=== PATIENT | female | born 1945 | race Caucasian/White ===

== ENCOUNTER 2020-02-03 12:40 | Inpatient (IN) | payer MEDICARE, OTHER ==
[~2020-02-03] VITALS: Ht 167.6 cm; Wt 97.5 kg
[2020-02-03] VITALS (11 sets, daily range): BP systolic 97–145; BP diastolic 69–112
--- OUTSIDE RECORDS SUMMARY | 2020-02-03 12:43 | XMS REPORT ---
Author Author [facility] Organization [facility] Address Unknown Phone Unavailable Care Team Providers Care Automobile Mechanic Assistant Name Role Phone Unavailable Unavailable Payers Payer Name Policy Type Policy Number Effective Date Expiration D ate Problems This patient has no known problems. Allergies, Adverse Reactions, Alerts Allergy Name Allergy Type Status Severity Reaction(s) Onset Date Inacti ve Date Treating Clinician Comments No Known Allergies DA Active U 2012-09-02 00:00:00 Medications This patient has no known medications. Results Test Description Test Time Test Comments Text Results Atomic Results Result Comments THROMBOPLASTIN TIME PARTIAL 2020-01-31 19:40:00 THROMBOPLASTIN TIME PARTIAL (test code = PTT) 54.1 seconds 23 .0-37.0 IS PATIENT ON ANTICOAGULANTS? YLIST ANTICOAGULANTS HEPARINSPECIMEN COMMENTS: HEPARIN DRIP PROTOCOLCOMMENTS TO COMMUNITY OUTREACH SPECIALIST: HEPARIN DRIP PROTOCOL THROMBOPLASTIN TIME [id number] 11:49:00* Test Item Value Reference Range Comments THROMBOPLASTIN TIME PARTIAL (test code = PTT) 55.9 seconds 23 .0-37.0 IS PATIENT ON ANTICOAGULANTS? YLIST ANTICOAGULANTS HEPARINPROTHROMBIN TIME 2020-01-31 08:19:00* Test Item Value Reference Range Comments PROTHROMBIN TIME PATIENT (test code = PTP) 13.6 seconds 9.0-1 4.0 INTERNATIONAL NORMAL RATIO (test code = INR) 1.2 0.8 -1.2 The therapeutic range for oral anticoagulant therapy formost indications is an international normalized ratio (INR)of between 2.0 and 3.0. The recommended therapeutic INRrange for various clinical situations is listed below: Clinical Situation INR range Pulmonary e mbolism treatment (2.0-3.0)Venous thrombosis treatmentVenous thrombosis prophylaxis (high risk surgery)Prevention of systemic embolism from: Acute myocardial infarction Valvular heart disease Atrial fibrillation Mechanical prosthetic heart valves (2.5-3.5) IS PATIENT ON ANTICOAGULANTS? YLIST ANTICOAGULANTS HEPARINTHROMBOPLASTIN TIME [id number] 08:19:00* Test Item Value Reference Range Comments THROMBOPLASTIN TIME PARTIAL (test code = PTT) 55.6 seconds 23 .0-37.0 IS PATIENT ON ANTICOAGULANTS? YLIST ANTICOAGULANTS HEPARINTHROMBOPLASTIN TIME [id number] 06:36:00* Test Item Value Reference Range Comments THROMBOPLASTIN TIME PARTIAL (test code = PTT) 55.6 seconds 23 .0-37.0 IS PATIENT ON ANTICOAGULANTS? YLIST ANTICOAGULANTS HEPARINTHROMBOPLASTIN TIME [id number] 23:39:00* Test Item Value Reference Range Comments THROMBOPLASTIN TIME PARTIAL (test code = PTT) 57.0 seconds 23 .0-37.0 IS PATIENT ON ANTICOAGULANTS? YLIST ANTICOAGULANTS HEPARINTHROMBOPLASTIN TIME [id number] 16:33:00* Test Item Value Reference Range Comments THROMBOPLASTIN TIME PARTIAL (test code = PTT) 80.5 seconds 23 .0-37.0 IS PATIENT ON ANTICOAGULANTS? YLIST ANTICOAGULANTS HEPARIN- HEPA IMAG INCL GB W [id number] 11:05:00 FAX: Nadeem Soto MD [phone] [place]: B St: [facility] FAX: Dwayne Price MD [phone] Name: FLORENCE MENDIETA [facility] : 1945 Age/S: 74/F [address] Unit #: [id number] Loc: VGina[address] [place] [address] Phys: Nadeem Miranda MD Acct: [id number] Dis Date: Status: ADM IN PHONE #: [phone] Exam Date: 01/30/2020 1057 FAX #: [phone] Reason: GALLSTONES EXAMS: CPT CODE: [id number] HEPA IMAG INCL GB W PHA [id number] HISTORY: GALLSTONES EXAM: NUCLEAR MEDICINE HEPATOBILIARY SCAN. TECHNIQUE: After IV injection of 5.7 mCi Tc 99m Choletec, sequential planar images were obtained over the upper abdomen out to 75 minutes. FINDINGS: Homogeneous distribution of radiopharmaceutical in the liver. Normal accumulation of radiopharmaceutical in the gallbladder by 75 minutes. Normal accumulation of radiopharmaceutical in small bowel by 5 minutes. No appreciable tracer excretion from the gallbladder. IMPRESSION: 1. No evidence of acute cholecystitis or biliary obstruction. 2. Gallbladder dysfunction. Location: [facility] at 1105 Reported and signed by: Stefan Tubbs MD CC: Nadeem Miranda MD; Dwayne Price MD Technologist: ELSI ROBERT Trnscrd Everardo ate/Time/By: 01/30/2020 (2223) : By: [email or web address] Orig Print D/T: S: 10/2019 (9022) PAGE 1 Signed Repor t PROTHROMBIN [id number] 07:44:00* Test Item Value Reference Range Comments PROTHROMBIN TIME PATIENT (test code = PTP) 13.5 seconds 9.0-1 4.0 INTERNATIONAL NORMAL RATIO (test code = INR) 1.1 0.8 -1.2 The therapeutic range for oral anticoagulant therapy formost indications is an international normalized ratio (INR)of between 2.0 and 3.0. The recommended therapeutic INRrange for various clinical situations is listed below: Clinical Situation INR range Pulmonary e mbolism treatment (2.0-3.0)Venous thrombosis treatmentVenous thrombosis prophylaxis (high risk surgery)Prevention of systemic embolism from: Acute myocardial infarction Valvular heart disease Atrial fibrillation Mechanical prosthetic heart valves (2.5-3.5) OK TO USE WALDO PER MARCI/IMC; ANOTH PTT IS ORDERED FOR 1330 V.LAB.CCD 01/30/20 0739IS PATIENT ON ANTICOAGULANTS? YLIST ANTICOAGULANTS HEPARINTHROMBOPLASTIN TIME [id number] 07:20:00* Test Item Value Reference Range Comments THROMBOPLASTIN TIME PARTIAL (test code = PTT) 41.1 seconds 23 .0-37.0 IS PATIENT ON ANTICOAGULANTS? YLIST ANTICOAGULANTS HEPARINTHROMBOPLASTIN TIME [id number] 18:58:00* Test Item Value Reference Range Comments THROMBOPLASTIN TIME PARTIAL (test code = PTT) 56.0 seconds 23 .0-37.0 IS PATIENT ON ANTICOAGULANTS? YLIST ANTICOAGULANTS HEPARINTHROMBOPLASTIN TIME [id number] 13:50:00* Test Item Value Reference Range Comments THROMBOPLASTIN TIME PARTIAL (test code = PTT) 52.3 seconds 23 .0-37.0 IS PATIENT ON ANTICOAGULANTS? YLIST ANTICOAGULANTS HEPARINPROTHROMBIN TIME 2020-01-29 13:41:00* Test Item Value Reference Range Comments PROTHROMBIN TIME PATIENT (test code = PTP) 13.5 seconds 9.0-1 4.0 INTERNATIONAL NORMAL RATIO (test code = INR) 1.1 0.8 -1.2 The therapeutic range for oral anticoagulant therapy formost indications is an international normalized ratio (INR)of between 2.0 and 3.0. The recommended therapeutic INRrange for various clinical situations is listed below: Clinical Situation INR range Pulmonary e mbolism treatment (2.0-3.0)Venous thrombosis treatmentVenous thrombosis prophylaxis (high risk surgery)Prevention of systemic embolism from: Acute myocardial infarction Valvular heart disease Atrial fibrillation Mechanical prosthetic heart valves (2.5-3.5) IS PATIENT ON ANTICOAGULANTS? YLIST ANTICOAGULANTS HEPARINBASIC METABOLIC [id number] 08:10:00* Test Item Value Reference Range Comments SODIUM (test code = NA) 140 mmol/L 136-145 POTASSIUM (test code = K) 3.9 mmol/L 3.5-5.1 CHLORIDE (test code = CL) 103.0 mmol/L 98-107 CARBON DIOXIDE (test code = CO2) 30.0 mmol/L 21-32 ANION GAP (test code = GAP) 10.9 10-20 GLUCOSE (test code = GLU) 149 mg/dL 74-106 BLOOD UREA NITROGEN (test code = BUN) 15 mg/dL 7-18 GLOMERULAR FILTRATION RATE (test code = GFR) > 60 mL/min >=6 0 Estimated GFR by using Modified MDRD formula.Chronic kidney disease is defined as either kidney damageor GFR <60 mL/min/1.73 m2 for >3 months. CREATININE (test code = CREAT) 0.70 mg/dL 0.55-1.02 * *Note change in reference range due to change in reagent. BUN/CREATININE RATIO (test code = BUN/CREA) 21.4 10-2 0 CALCIUM (test code = CA) 8.6 mg/dL 8.5-10.1 BASIC METABOLIC [id number] 08:00:00* Test Item Value Reference Range Comments SODIUM (test code = NA) 140 mmol/L 136-145 POTASSIUM (test code = K) 3.9 mmol/L 3.5-5.1 CHLORIDE (test code = CL) 103.0 mmol/L 98-107 CARBON DIOXIDE (test code = CO2) mmol/L 21-32 ANION GAP (test code = GAP) 10-20 GLUCOSE (test code = GLU) mg/dL 74-106 BLOOD UREA NITROGEN (test code = BUN) mg/dL 7-18 GLOMERULAR FILTRATION RATE (test code = GFR) mL/min >=6 0 CREATININE (test code = CREAT) mg/dL 0.55-1.02 BUN/CREATININE RATIO (test code = BUN/CREA) 10-2 0 CALCIUM (test code = CA) mg/dL 8.5-10.1 THROMBOPLASTIN TIME [id number] 07:54:00* Test Item Value Reference Range Comments THROMBOPLASTIN TIME PARTIAL (test code = PTT) 57.6 seconds 23 .0-37.0 IS PATIENT ON ANTICOAGULANTS? YLIST ANTICOAGULANTS HEPRIN DRIPCBC W/AUTO [id number] 07:38:00* Test Item Value Reference Range Comments WHITE BLOOD CELL (test code = WBC) 3.7 K/mm3 4.5-12.5 RED BLOOD CELL (test code = RBC) 4.17 mill/mm3 3.7-5.2 HEMOGLOBIN (test code = HGB) 11.8 gram/dL 11.5-15.5 HEMATOCRIT (test code = HCT) 37.5 % 36.0-46.0 MEAN CELL VOLUME (test code = MCV) 89.9 fL 80-98 MEAN CELL HGB (test code = MCH) 28.3 picogram 27.0-33.0 MEAN CELL HGB CONCETRATION (test code = MCHC) 31.5 gram/dL 33 .0-36.0 RED CELL DISTRIBUTION WIDTH (test code = RDW) 13.8 % 11 .6-16.2 RED CELL DISTRIBUTION WIDTH SD (test code = RDW-SD) 45.0 fL 37.0-51.0 PLATELET COUNT (test code = PLT) 189 K/mm3 150-450 MEAN PLATELET VOLUME (test code = MPV) 9.7 fL 6.7-11.0 NEUTROPHIL % (test code = NT%) 52.9 % 39.0-69.0 IMMATURE GRANULOCYTE % (test code = IG%) 0.3 % 0.0-5.0 LYMPHOCYTE % (test code = LY%) 29.9 % 25.0-55.0 MONOCYTE % (test code = MO%) 11.5 % 0.0-10.0 EOSINOPHIL % (test code = EO%) 4.3 % 0.0-5.0 BASOPHIL % (test code = BA%) 1.1 % 0.0-1.0 NUCLEATED RBC % (test code = NRBC%) 0.0 % 0-0 NEUTROPHIL # (test code = NT#) 1.98 K/mm3 1.8-7.7 IMMATURE GRANULOCYTE # (test code = IG#) 0.01 x10 3/uL 0-0.03 LYMPHOCYTE # (test code = LY#) 1.12 K/mm3 1.0-5.0 MONOCYTE # (test code = MO#) 0.43 K/mm3 0-0.8 EOSINOPHIL # (test code = EO#) 0.16 K/mm3 0.0-0.5 BASOPHIL # (test code = BA#) 0.04 K/mm3 0.0-0.2 NUCLEATED RBC # (test code = NRBC#) 0.00 K/mm3 0.0-0.1 MANUAL DIFF REQUIRED (test code = MDIFF) NO THROMBOPLASTIN TIME [id number] 02:12:00* Test Item Value Reference Range Comments THROMBOPLASTIN TIME PARTIAL (test code = PTT) 56.7 seconds 23 .0-37.0 IS PATIENT ON ANTICOAGULANTS? YLIST ANTICOAGULANTS Hdeprin drip THROMBOPLASTIN TIME [id number] 19:28:00* Test Item Value Reference Range Comments THROMBOPLASTIN TIME PARTIAL (test code = PTT) 50.3 seconds 23 .0-37.0 IS PATIENT ON ANTICOAGULANTS? YLIST ANTICOAGULANTS HEPARINPROTHROMBIN TIME 2020-01-28 12:47:00* Test Item Value Reference Range Comments PROTHROMBIN TIME PATIENT (test code = PTP) 12.8 seconds 9.0-1 4.0 INTERNATIONAL NORMAL RATIO (test code = INR) 1.1 0.8 -1.2 The therapeutic range for oral anticoagulant therapy formost indications is an international normalized ratio (INR)of between 2.0 and 3.0. The recommended therapeutic INRrange for various clinical situations is listed below: Clinical Situation INR range Pulmonary e mbolism treatment (2.0-3.0)Venous thrombosis treatmentVenous thrombosis prophylaxis (high risk surgery)Prevention of systemic embolism from: Acute myocardial infarction Valvular heart disease Atrial fibrillation Mechanical prosthetic heart valves (2.5-3.5) IS PATIENT ON ANTICOAGULANTS? YLIST ANTICOAGULANTS Heprin dripTHROMBOPLASTIN TIME [id number] 12:47:00* Test Item Value Reference Range Comments THROMBOPLASTIN TIME PARTIAL (test code = PTT) 62.7 seconds 23 .0-37.0 IS PATIENT ON ANTICOAGULANTS? YLIST ANTICOAGULANTS Heprin drip IMMUNOGLOBULINS A,G [id number] 08:09:00* Test Item Value Reference Range Comments IMMUNOGLOBULIN G (test code = IGG) 1301 mg/dL 586-1602 IMMUNOGLOBULIN M (test code = IGM) 397 mg/dL 26-217 Performed At: [facility] [id number] Mil Wells MD Ph:[phone] IMMUNOGLOBULIN A (test code = IGA) 172 mg/dL 64-422 THROMBOPLASTIN TIME [id number] 06:57:00* Test Item Value Reference Range Comments THROMBOPLASTIN TIME PARTIAL (test code = PTT) 65.5 seconds 23 .0-37.0 IS PATIENT ON ANTICOAGULANTS? YLIST ANTICOAGULANTS HEPRIN DRIPTHROMBOPLASTIN TIME [id number] 23:52:00* Test Item Value Reference Range Comments THROMBOPLASTIN TIME PARTIAL (test code = PTT) 67.1 seconds 23 .0-37.0 IS PATIENT ON ANTICOAGULANTS? YLIST ANTICOAGULANTS HEPARINTHROMBOPLASTIN TIME [id number] 17:46:00* Test Item Value Reference Range Comments THROMBOPLASTIN TIME PARTIAL (test code = PTT) 64.0 seconds 23 .0-37.0 IS PATIENT ON ANTICOAGULANTS? YLIST ANTICOAGULANTS HEPARIN- US ABDOMEN [id number] 17:01:00 Name: FLORENCE MENDIETA [facility] : 1945 Age/S: 74 / F [address] [facility] Unit #: [id number] Loc: [place] [address] Phys: Lynsey Robbins MD Acct: [id number] Dis Date: Status: ADM IN PHONE #: [phone] Exam Date: 01/27/2020 1654 FAX #: [phone] Reason: high lft EXAMS: CPT CODE: [id number] US ABDOMEN COMPLETE 16036 REASON FOR EXAM: high lft EXAM ORDER DATE: 01/27/2020 11:53 AM Ordering: Lynsey Robbins MD Attending:Dwayne Price MD Location:[facility] PROCEDURE: - US ABDOMEN COMPLETE FINDINGS: The liver is mildly echogenic. There is no evidence of focal mass identified. The pancreas is within normal limits. The right kidney measures 12.9 x 4.8 cm. The left kidney measures 11.5 x 5.9 cm. There is no evidence of hydronephrosis. There is no evidence of nephrolithiasis. There is no evidence of renal mass. The spleen measures 12.8 cm. The gallbladder is contracted with small gallstones in the neck. No evidence of gallbladder wall thickening or pericholecystic fluid. The common bile duct measures 0.4 cm. There is no evidence of ascites. The aorta and IVC are within normal limits. The portal vein is patent with hepatopetal flow IMPRESSION: Fatty liver. Cholelithiasis. at 1701 Reported and signed by: Jn Alvarado M.D. CC: Dwayne Price MD; Lynsey Robbins MD Technologist: Francisco Dorsey Trnnhb Date/Time: 01/27/2020 (170) t.VTL Orig Print D/T: S: 01/27/2020 (6023) Probe: PAGE 1 Signed Report [id number] 14:38:00* Test Item Value Reference Range Comments AMMONIA (test code = AMM) 80 umol/L 11-32 PROTHROMBIN [id number] 14:37:00* Test Item Value Reference Range Comments PROTHROMBIN TIME PATIENT (test code = PTP) 13.2 seconds 9.0-1 4.0 INTERNATIONAL NORMAL RATIO (test code = INR) 1.1 0.8 -1.2 The therapeutic range for oral anticoagulant therapy formost indications is an international normalized ratio (INR)of between 2.0 and 3.0. The recommended therapeutic INRrange for various clinical situations is listed below: Clinical Situation INR range Pulmonary e mbolism treatment (2.0-3.0)Venous thrombosis treatmentVenous thrombosis prophylaxis (high risk surgery)Prevention of systemic embolism from: Acute myocardial infarction Valvular heart disease Atrial fibrillation Mechanical prosthetic heart valves (2.5-3.5) IS PATIENT ON ANTICOAGULANTS? YLIST ANTICOAGULANTS [id number] 14:37:00* Test Item Value Reference Range Comments D-DIMER (test code = DDIMER) 01637.00 ng/mLFEU 0-500 R esults called to [id number] by JENNIFER 01/27/20 1437Critical results verified and read back by Nurse? YClinical Cut-off value for D-Dimer is 500 ng/mL FEU. Comment: The [employer] D- Dimer assay is intended for use asan aid in the diagnosis of venous thromboembolism (VTE)[deep vein thrombosis (DVT) or pulmonary embolism (PE)].The measurement of D-Dimer should not be used as an aid inthe diagnosis of VTE, in patient with: -Therapeutic dose anticoagulant therapy for >24 hours - Fibrinolytic therapy within previous 7 days -Trauma or surgery within previous 4 weeks -Disseminated malignancies -Aortic aneurysm -Sepsis, severe infections, pneumonia, severe skin infections -Liver cirrhosis - IS PATIENT ON ANTICOAGULANTS? YLIST ANTICOAGULANTS HEPARINTHROMBOPLASTIN TIME [id number] 14:28:00* Test Item Value Reference Range Comments THROMBOPLASTIN TIME PARTIAL (test code = PTT) 62.8 seconds 23 .0-37.0 IS PATIENT ON ANTICOAGULANTS? YLIST ANTICOAGULANTS HEPARINTHROMBOPLASTIN TIME [id number] 10:20:00* Test Item Value Reference Range Comments THROMBOPLASTIN TIME PARTIAL (test code = PTT) 64.3 seconds 23 .0-37.0 IS PATIENT ON ANTICOAGULANTS? YLIST ANTICOAGULANTS HEPARINTROPONIN-I 2020-01-27 08:11:00* Test Item Value Reference Range Comments TROPONIN-I (test code = TROPI) 0.028 ng/mL 0-0.045 COMMENTS TO COMMUNITY OUTREACH SPECIALIST: COLLECT 3 HOURS AFTER PREVIOUS SAMPLETHROMBOPLASTIN TIME [id number] 05:45:00* Test Item Value Reference Range Comments THROMBOPLASTIN TIME PARTIAL (test code = PTT) 96.8 seconds 23 .0-37.0 Results called to [id number] by [email or web address] 01/27/20 0544Critical results verified and read back by Nurse? Y IS PATIENT ON ANTICOAGULANTS? YLIST ANTICOAGULANTS HEPARINTROPONIN-I 2020-01-27 05:40:00* Test Item Value Reference Range Comments TROPONIN-I (test code = TROPI) 0.044 ng/mL 0-0.045 COMMENTS TO COMMUNITY OUTREACH SPECIALIST: COLLECT 3 HOURS AFTER PREVIOUS [id number] 01:11:00* Test Item Value Reference Range Comments HEMATOCRIT (test code = HCT) 38.6 % 36.0-46.0 THROMBOPLASTIN TIME [id number] 23:42:00* Test Item Value Reference Range Comments THROMBOPLASTIN TIME PARTIAL (test code = PTT) 31.7 seconds 23 .0-37.0 IS PATIENT ON ANTICOAGULANTS? N- CTA [id number] 23:23:00 Name: FLORENCE MENDIETA MUSA [facility] : 1945 Age/S: 74 / F [address] [facility] Unit #: [id number] Loc: [place] [address] Phys: Gavin Rahman MD Acct: [id number] Di s Date: Status: REG ER PHONE #: Exam Date: 01/26/2020 230 FAX #: Reason: shortness of breath Report Has Been Amended EXAMS: CPT CODE: [id number] CTA CHEST 45010 Addendum - 01/26/2020 SIGNED 01/25 ADDENDUM: [id number] CT/CTACHWWO ADDEN DUM: Results were verbally communicated by telephone to Gricelda Rahman MD on 01/26/2020 11:21 PM. at 2323 Reported and signed by: Robson Denton M.D. Transcribed: 01/26/2020 (5733) t.SDR.MA50 Report AFTER HOURS SERVICE ON: 01/26/2020 11:[address] Scan of the Chest W ith Contrast Location Code M12 History: shortness of breath Technique: Scans were performed on a helical scanner post IV contrast. Coronal and sagittal reconstructions were performed. 3-D post processing was not performed. One or more of the following dose reduction techniques were used: Automated exposure control, adjus tment of the mA and/or kV according to patient size, and/or utilization of iterative reconstruction technique. FINDINGS: There are large filling defects in the segmental and subsegmental pulmon harris arteries bilaterally involving the upper and lower lobes bilaterally c onsistent with pulmonary emboli. There are new from 01/11/2020. Some of the emboli appear occlusive. There is no large saddle embolism. There is no aortic aneurysm or dissection. There is no cardiomegaly. Atherosclerosis noted in aorta and coronary arteries. PAGE 1 Signed Report (CONTINUED) Name: FLORENCE MENDIETA [facility] : 1945 Age/S: 74 / F [address] [facility] Unit #: [id number] Loc: [place] [address] Phys: Gricelda Rahman MD Acct: [id number] Dis Date: Status: REG ER PHONE #: [phone] Exam Date: 01/26/2020 230 FAX #: [phone] Reason: shortness of breath Report Has Been Amended EXAMS: CPT CODE: [id number] CTA CHEST 80022 < Continued> Atelectatic changes noted in the lower lobes. Small ground glass infiltrate is noted in the periphery of the left lower lobe. There is no pleural effusion or pulmonary edema. In the upper abdomen, there are small gallstones. There is a small hiatal hernia. Liver is hypodense consistent with steatosis. IMPRESSION: Positive for new large bilateral pulmonary emboli. Small groundglass infiltrate in the periphery of the left lower lobe. Small hiatal hernia. Cholelithiasis. FOR INTERNAL CODING PURPOSES ONLY RESULT CODE: CVR at 2320 Reported and signed by: Robson Denton M.D. CC: Gricelda Rahman MD Technologist:GAYATRI MAGAÑA CT CTDI: DLP: Trnscb Date/Time: 01/26/2020 (2319) [email or web address] Orig Print D/T: S: 01/26/2020 (2322) PAGE 2 Signed Report - CTA [id number] 23:20:00 Name: FLORENCE MENDIETA MUSA [facility] : 1945 Age/S: 74 / F [address] [facility] Unit #: [id number] Loc: [place] [address] Phys: Gricedla Rahman MD Acct: [id number] Dis Date: Status: REG ER PHONE #: [phone] Exam Date: 01/26/20202304 FAX #: [phone] Reason: shortness of breath EXAMS: CPT CODE: [id number] CTA CHEST 86846 AFTER HOURS SERVICE ON: 01/26/2020 11:[address] Scan of the Chest With Contrast Location Code M12 History: shortness of breath Technique: Scans were performed on a helical scanner post IV contrast. Coronal and sagittal reconstructions were performed. 3- D post processing was not performed. One or more of the following dose reduction techniques were used: Automated exposure control, adjustment of the mA and/or kV according to patient size, and/or utilization of iterative reconstruction technique. FINDINGS: There are large filling defects in the segmental and subsegmental pulmonary arteries bilaterally involving the upper and lower lobes bilaterally consistent with pulmonary emboli. There are new from 01/11/2020. Some of the emboli appear occlusive. There is no large saddle embolism. There is no aortic aneurysm or dissection. There is no cardiomegaly. Atherosclerosis noted in aorta and coronary arteries. Atelectatic changes noted in the lower lobes. Small ground glass infiltrate is noted in the periphery of the left lower lobe. There is no pleural effusion or pulmonary edema. In the upper abdomen, there are small gallstones. There is a small hiatal hernia. Liver is hypodense consistent with steatosis. IMPRESSION: Positive for new large bilateral pulmonary emboli. Small groundglass infiltrate in the periphery of the left lower lobe. Small hiatal hernia. Cholelithiasis. PAGE 1 Signed Report (CONTINUED) Name: FLORENCE MENDIETA [facility] : 1945 Age/S: 74 / F [address] [facility] Unit #: [id number] Loc: [place] [address] Phys: Gricelda Rahman MD Acct: [id number] Dis Date: Status: REG ER PHONE #: [phone] Exam Date: 01/26/2020 2305 FAX #: [phone] Reason: shortness of breath E XAMS: CPT CODE: [id number] CTA CHEST 37240 <Continued> FOR INTERNAL CODING PURPOSES ONLY RESULT CODE: CVR at 2320 Reported and signed by: Robson Denton M.D. CC: Gricelda Rahman MD Technologist:GAYATRI MAGAÑA CT CTDI: DLP: Trnscb Date/Time: 01/26/2020 (2319) [email or web address] Orig Print D/T: S: 01/26/2020 (2322) PAGE 2 Signed Report - XR CHEST 1 [id number] 22:29:00 FAX: Gricelda Deras [phone] [place]: B St: REG Name: FLORENCE BURGER [facility] : [birth year] Age/S: 74/F [address] Unit #: [id number] Loc: [place] [address] Phys: Gricelda Rahman MD Acct: [id number] Dis Date: Status: REG ER PHONE #: [phone] Exam Date: 01/26/20202154 FAX #: [phone] Reason: CODE SEPSIS EXAMS: CPT CODE: [id number] XR CHEST 1 V 64333 HISTORY: Sepsis Loca tion: C3 COMPARISON:01/11/2020 FINDINGS: Aorti c calcifications are present. Heart size and vascularity are within normal limits. The lungs are clear of focal consolidation. No effusion, pneumothorax, or acute osseous abnormality. IMPRESSION: 1. Stable chest. No focal consolidation. No other acute abnormalities. Electronically Signed by Bautista Anand MD on at 2229 Reported and signed by: Bautista Anand MD CC: Gricelda Rahman MD Technologist: RASHI VILLAGRAN(R) Trnscrd Date/Time/By: 01/26/2020 (2228) : By: [email or web address] Orig Print D/T: S: (5908) PAGE 1 Signed Repo rt Coronavirus 2019 nCoV [id number] 22:27:00* Test Item Value Reference Range Comments Coronavirus 2019 nCoV Bedside (test code = [id number]) Negativ e Is patient requiring admission or transfer? YIndication for rapid COVID-19 testi ng: Mod Clinical SuspicionURINALYSIS [id number] 22:18:00* Test Item Value Reference Range Comments UA COLOR (test code = COLU) YELLOW YELLOW UA APPEARANCE (test code = APPU) CLEAR CLEAR UA GLUCOSE DIPSTICK (test code = DGLUU) 500 (3+) mg/dL NEGATIVE UA BILIRUBIN DIPSTICK (test code = BILU) NEGATIVE mg/dL NEGATIV E UA KETONE DIPSTICK (test code = KETU) TRACE mg/dL NEGATIVE UA SPECIFIC GRAVITY (test code = SGU) 1.031 1.001-1.03 5 UA BLOOD DIPSTICK (test code = SOPHIE) Negative mg/dL NEGATIVE UA PH DIPSTICK (test code = ERVIN) 6.0 5.0-8.0 UA PROTEIN DIPSTICK (test code = PROU) 30 (1+) mg/dL NEGATIVE UA UROBILINIOGEN DIPSTICK (test code = URO) 4.0 (2+) mg/dL NEGA TIVE UA NITRITE DIPSTICK (test code = MERVIN) NEGATIVE NEGATIVE UA LEUKOCYTE ESTERASE W REFLEX (test code = LEUUR) NEGATIVE Inge/ uL NEGATIVE UA WBC (test code = WBCU) 0-5 per HPF 0-5 UA RBC (test code = RBCU) NONE SEEN #/HPF 0-5 UA EPITHELIAL CELLS (test code = EPIU) FEW per HPF FEW UA BACTERIA (test code = BACU) NONE SEEN #/HPF NONE UA CALCIUM OXALATE CRYSTALS (test code = CAOXU) MODERATE #/HPF NONE UA HYALINE CAST (test code = HYALU) 0-2 #/LPF 0-5 UA MUCUS (test code = MUCU) FEW #/LPF FEW Urine Source? Clean CatchB-TYPE NATRIURETIC [id number] 22:14:00* Test Item Value Reference Range Comments B-TYPE NATRIURETIC PEPTIDE (test code = BNP) 127.34 pgram/mL 0-1 00 BASIC METABOLIC [id number] 22:01:00* Test Item Value Reference Range Comments SODIUM (test code = NA) 136 mmol/L 136-145 POTASSIUM (test code = K) 4.0 mmol/L 3.5-5.1 CHLORIDE (test code = CL) 101.0 mmol/L 98-107 CARBON DIOXIDE (test code = CO2) 29.0 mmol/L 21-32 ANION GAP (test code = GAP) 10.0 10-20 GLUCOSE (test code = GLU) 269 mg/dL 74-106 BLOOD UREA NITROGEN (test code = BUN) 18 mg/dL 7-18 GLOMERULAR FILTRATION RATE (test code = GFR) > 60 mL/min >=6 0 Estimated GFR by using Modified MDRD formula.Chronic kidney disease is defined as either kidney damageor GFR <60 mL/min/1.73 m2 for >3 months. CREATININE (test code = CREAT) 0.90 mg/dL 0.55-1.02 * *Note change in reference range due to change in reagent. BUN/CREATININE RATIO (test code = BUN/CREA) 20.0 10-2 0 CALCIUM (test code = CA) 8.6 mg/dL 8.5-10.1 HEPATIC FUNCTION [id number] 22:01:00* Test Item Value Reference Range Comments TOTAL PROTEIN (test code = PROT) 7.4 gram/dL 6.4-8.2 ALBUMIN (test code = ALB) 2.8 g/dL 3.4-5.0 GLOBULIN (test code = GLOB) 4.6 gram/dL 2.7-4.2 ALBUMIN/GLOBULIN RATIO (test code = A/G) 0.6 0.75-1. 50 BILIRUBIN TOTAL (test code = BILT) 0.30 mg/dL 0.0-1.0 BILIRUBIN DIRECT (test code = BILD) 0.10 mg/dL 0.0-0.20 SGOT/AST (test code = AST) 90 IUnit/L 15-37 SGPT/ALT (test code = ALT) 82 IUnit/L 12-78 ALKALINE PHOSPHATASE TOTAL (test code = ALKP) 109 IUnit/L 45 -117 Note change in reference range due to change in reagent. [id number] 22:01:00* Test Item Value Reference Range Comments LIPASE (test code = LIP) 254 U/L 73.0-393.0 [id number] 22:01:00* Test Item Value Reference Range Comments TROPONIN-I (test code = TROPI) 0.036 ng/mL 0-0.045 BASIC METABOLIC [id number] 21:57:00* Test Item Value Reference Range Comments SODIUM (test code = NA) 136 mmol/L 136-145 POTASSIUM (test code = K) 4.0 mmol/L 3.5-5.1 CHLORIDE (test code = CL) 101.0 mmol/L 98-107 CARBON DIOXIDE (test code = CO2) mmol/L 21-32 ANION GAP (test code = GAP) 10-20 GLUCOSE (test code = GLU) mg/dL 74-106 BLOOD UREA NITROGEN (test code = BUN) mg/dL 7-18 GLOMERULAR FILTRATION RATE (test code = GFR) mL/min >=6 0 CREATININE (test code = CREAT) mg/dL 0.55-1.02 BUN/CREATININE RATIO (test code = BUN/CREA) 10-2 0 CALCIUM (test code = CA) mg/dL 8.5-10.1 HEPATIC FUNCTION [id number] 21:57:00* Test Item Value Reference Range Comments TOTAL PROTEIN (test code = PROT) gram/dL 6.4-8.2 ALBUMIN (test code = ALB) g/dL 3.4-5.0 GLOBULIN (test code = GLOB) gram/dL 2.7-4.2 ALBUMIN/GLOBULIN RATIO (test code = A/G) 0.75-1. 50 BILIRUBIN TOTAL (test code = BILT) mg/dL 0.0-1.0 BILIRUBIN DIRECT (test code = BILD) mg/dL 0.0-0.20 SGOT/AST (test code = AST) IUnit/L 15-37 SGPT/ALT (test code = ALT) IUnit/L 12-78 ALKALINE PHOSPHATASE TOTAL (test code = ALKP) IUnit/L 45 -117 [id number] 21:57:00* Test Item Value Reference Range Comments LIPASE (test code = LIP) U/L 73.0-393.0 [id number] 21:57:00* Test Item Value Reference Range Comments TROPONIN-I (test code = TROPI) ng/mL 0-0.045 LACTIC [id number] 21:46:00* Test Item Value Reference Range Comments LACTIC ACID (test code = LACT) 1.9 mmol/L 0.4-1.9 CBC W/AUTO [id number] 21:45:00* Test Item Value Reference Range Comments WHITE BLOOD CELL (test code = WBC) 4.8 K/mm3 4.5-12.5 RED BLOOD CELL (test code = RBC) 4.36 mill/mm3 3.7-5.2 HEMOGLOBIN (test code = HGB) 12.3 gram/dL 11.5-15.5 HEMATOCRIT (test code = HCT) 38.3 % 36.0-46.0 MEAN CELL VOLUME (test code = MCV) 87.8 fL 80-98 MEAN CELL HGB (test code = MCH) 28.2 picogram 27.0-33.0 MEAN CELL HGB CONCETRATION (test code = MCHC) 32.1 gram/dL 33 .0-36.0 RED CELL DISTRIBUTION WIDTH (test code = RDW) 13.3 % 11 .6-16.2 RED CELL DISTRIBUTION WIDTH SD (test code = RDW-SD) 43.0 fL 37.0-51.0 PLATELET COUNT (test code = PLT) 176 K/mm3 150-450 MEAN PLATELET VOLUME (test code = MPV) 10.3 fL 6.7-11.0 NEUTROPHIL % (test code = NT%) 56.8 % 39.0-69.0 IMMATURE GRANULOCYTE % (test code = IG%) 0.6 % 0.0-5.0 LYMPHOCYTE % (test code = LY%) 28.3 % 25.0-55.0 MONOCYTE % (test code = MO%) 11.0 % 0.0-10.0 EOSINOPHIL % (test code = EO%) 2.7 % 0.0-5.0 BASOPHIL % (test code = BA%) 0.6 % 0.0-1.0 NUCLEATED RBC % (test code = NRBC%) 0.0 % 0-0 NEUTROPHIL # (test code = NT#) 2.75 K/mm3 1.8-7.7 IMMATURE GRANULOCYTE # (test code = IG#) 0.03 x10 3/uL 0-0.03 LYMPHOCYTE # (test code = LY#) 1.37 K/mm3 1.0-5.0 MONOCYTE # (test code = MO#) 0.53 K/mm3 0-0.8 EOSINOPHIL # (test code = EO#) 0.13 K/mm3 0.0-0.5 BASOPHIL # (test code = BA#) 0.03 K/mm3 0.0-0.2 NUCLEATED RBC # (test code = NRBC#) 0.00 K/mm3 0.0-0.1 MANUAL DIFF REQUIRED (test code = MDIFF) NO CBC W/AUTO [id number] 21:44:00* Test Item Value Reference Range Comments WHITE BLOOD CELL (test code = WBC) K/mm3 4.5-12.5 RED BLOOD CELL (test code = RBC) mill/mm3 3.7-5.2 HEMOGLOBIN (test code = HGB) 12.3 gram/dL 11.5-15.5 HEMATOCRIT (test code = HCT) 38.3 % 36.0-46.0 MEAN CELL VOLUME (test code = MCV) fL 80-98 MEAN CELL HGB (test code = MCH) picogram 27.0-33.0 MEAN CELL HGB CONCETRATION (test code = MCHC) gram/dL 33 .0-36.0 RED CELL DISTRIBUTION WIDTH (test code = RDW) % 11 .6-16.2 RED CELL DISTRIBUTION WIDTH SD (test code = RDW-SD) fL 37.0-51.0 PLATELET COUNT (test code = PLT) K/mm3 150-450 MEAN PLATELET VOLUME (test code = MPV) fL 6.7-11.0 NEUTROPHIL % (test code = NT%) % 39.0-69.0 IMMATURE GRANULOCYTE % (test code = IG%) % 0.0-5.0 LYMPHOCYTE % (test code = LY%) % 25.0-55.0 MONOCYTE % (test code = MO%) % 0.0-10.0 EOSINOPHIL % (test code = EO%) % 0.0-5.0 BASOPHIL % (test code = BA%) % 0.0-1.0 NEUTROPHIL # (test code = NT#) K/mm3 1.8-7.7 LYMPHOCYTE # (test code = LY#) K/mm3 1.0-5.0 MONOCYTE # (test code = MO#) K/mm3 0-0.8 EOSINOPHIL # (test code = EO#) K/mm3 0.0-0.5 BASOPHIL # (test code = BA#) K/mm3 0.0-0.2 COMPREHENSIVE METABOLIC [id number] 05:28:00* Test Item Value Reference Range Comments SODIUM (test code = NA) 141 mmol/L 136-145 POTASSIUM (test code = K) 3.8 mmol/L 3.5-5.1 CHLORIDE (test code = CL) 106.0 mmol/L 98-107 CARBON DIOXIDE (test code = CO2) 28.0 mmol/L 21-32 ANION GAP (test code = GAP) 10.8 10-20 GLUCOSE (test code = GLU) 200 mg/dL 74-106 BLOOD UREA NITROGEN (test code = BUN) 19 mg/dL 7-18 GLOMERULAR FILTRATION RATE (test code = GFR) > 60 mL/min >=6 0 Estimated GFR by using Modified MDRD formula.Chronic kidney disease is defined as either kidney damageor GFR <60 mL/min/1.73 m2 for >3 months. CREATININE (test code = CREAT) 0.70 mg/dL 0.55-1.02 * *Note change in reference range due to change in reagent. BUN/CREATININE RATIO (test code = BUN/CREA) 27.1 10-2 0 TOTAL PROTEIN (test code = PROT) 6.9 gram/dL 6.4-8.2 ALBUMIN (test code = ALB) 2.9 g/dL 3.4-5.0 GLOBULIN (test code = GLOB) 4.0 gram/dL 2.7-4.2 ALBUMIN/GLOBULIN RATIO (test code = A/G) 0.7 0.75-1. 50 CALCIUM (test code = CA) 8.7 mg/dL 8.5-10.1 BILIRUBIN TOTAL (test code = BILT) 0.30 mg/dL 0.0-1.0 SGOT/AST (test code = AST) 80 IUnit/L 15-37 SGPT/ALT (test code = ALT) 108 IUnit/L 12-78 ALKALINE PHOSPHATASE TOTAL (test code = ALKP) 114 IUnit/L 45 -117 Note change in reference range due to change in reagent. COMPREHENSIVE METABOLIC [id number] 05:22:00* Test Item Value Reference Range Comments SODIUM (test code = NA) 141 mmol/L 136-145 POTASSIUM (test code = K) 3.8 mmol/L 3.5-5.1 CHLORIDE (test code = CL) 106.0 mmol/L 98-107 CARBON DIOXIDE (test code = CO2) mmol/L 21-32 ANION GAP (test code = GAP) 10-20 GLUCOSE (test code = GLU) mg/dL 74-106 BLOOD UREA NITROGEN (test code = BUN) mg/dL 7-18 GLOMERULAR FILTRATION RATE (test code = GFR) mL/min >=6 0 CREATININE (test code = CREAT) mg/dL 0.55-1.02 BUN/CREATININE RATIO (test code = BUN/CREA) 10-2 0 TOTAL PROTEIN (test code = PROT) gram/dL 6.4-8.2 ALBUMIN (test code = ALB) g/dL 3.4-5.0 GLOBULIN (test code = GLOB) gram/dL 2.7-4.2 ALBUMIN/GLOBULIN RATIO (test code = A/G) 0.75-1. 50 CALCIUM (test code = CA) mg/dL 8.5-10.1 BILIRUBIN TOTAL (test code = BILT) mg/dL 0.0-1.0 SGOT/AST (test code = AST) IUnit/L 15-37 SGPT/ALT (test code = ALT) IUnit/L 12-78 ALKALINE PHOSPHATASE TOTAL (test code = ALKP) IUnit/L 45 -117 CBC W/AUTO [id number] 05:20:00* Test Item Value Reference Range Comments WHITE BLOOD CELL (test code = WBC) 4.0 K/mm3 4.5-12.5 RED BLOOD CELL (test code = RBC) 4.25 mill/mm3 3.7-5.2 HEMOGLOBIN (test code = HGB) 12.1 gram/dL 11.5-15.5 HEMATOCRIT (test code = HCT) 37.6 % 36.0-46.0 MEAN CELL VOLUME (test code = MCV) 88.5 fL 80-98 MEAN CELL HGB (test code = MCH) 28.5 picogram 27.0-33.0 MEAN CELL HGB CONCETRATION (test code = MCHC) 32.2 gram/dL 33 .0-36.0 RED CELL DISTRIBUTION WIDTH (test code = RDW) 13.5 % 11 .6-16.2 RED CELL DISTRIBUTION WIDTH SD (test code = RDW-SD) 43.7 fL 37.0-51.0 PLATELET COUNT (test code = PLT) 197 K/mm3 150-450 MEAN PLATELET VOLUME (test code = MPV) 10.1 fL 6.7-11.0 NEUTROPHIL % (test code = NT%) 50.5 % 39.0-69.0 IMMATURE GRANULOCYTE % (test code = IG%) 0.2 % 0.0-5.0 LYMPHOCYTE % (test code = LY%) 33.9 % 25.0-55.0 MONOCYTE % (test code = MO%) 11.9 % 0.0-10.0 EOSINOPHIL % (test code = EO%) 2.5 % 0.0-5.0 BASOPHIL % (test code = BA%) 1.0 % 0.0-1.0 NUCLEATED RBC % (test code = NRBC%) 0.0 % 0-0 NEUTROPHIL # (test code = NT#) 2.04 K/mm3 1.8-7.7 IMMATURE GRANULOCYTE # (test code = IG#) 0.01 x10 3/uL 0-0.03 LYMPHOCYTE # (test code = LY#) 1.37 K/mm3 1.0-5.0 MONOCYTE # (test code = MO#) 0.48 K/mm3 0-0.8 EOSINOPHIL # (test code = EO#) 0.10 K/mm3 0.0-0.5 BASOPHIL # (test code = BA#) 0.04 K/mm3 0.0-0.2 NUCLEATED RBC # (test code = NRBC#) 0.00 K/mm3 0.0-0.1 MANUAL DIFF REQUIRED (test code = MDIFF) NO CBC W/AUTO [id number] 05:16:00* Test Item Value Reference Range Comments WHITE BLOOD CELL (test code = WBC) K/mm3 4.5-12.5 RED BLOOD CELL (test code = RBC) mill/mm3 3.7-5.2 HEMOGLOBIN (test code = HGB) 12.1 gram/dL 11.5-15.5 HEMATOCRIT (test code = HCT) 37.6 % 36.0-46.0 MEAN CELL VOLUME (test code = MCV) fL 80-98 MEAN CELL HGB (test code = MCH) picogram 27.0-33.0 MEAN CELL HGB CONCETRATION (test code = MCHC) gram/dL 33 .0-36.0 RED CELL DISTRIBUTION WIDTH (test code = RDW) % 11 .6-16.2 RED CELL DISTRIBUTION WIDTH SD (test code = RDW-SD) fL 37.0-51.0 PLATELET COUNT (test code = PLT) K/mm3 150-450 MEAN PLATELET VOLUME (test code = MPV) fL 6.7-11.0 NEUTROPHIL % (test code = NT%) % 39.0-69.0 IMMATURE GRANULOCYTE % (test code = IG%) % 0.0-5.0 LYMPHOCYTE % (test code = LY%) % 25.0-55.0 MONOCYTE % (test code = MO%) % 0.0-10.0 EOSINOPHIL % (test code = EO%) % 0.0-5.0 BASOPHIL % (test code = BA%) % 0.0-1.0 NEUTROPHIL # (test code = NT#) K/mm3 1.8-7.7 LYMPHOCYTE # (test code = LY#) K/mm3 1.0-5.0 MONOCYTE # (test code = MO#) K/mm3 0-0.8 EOSINOPHIL # (test code = EO#) K/mm3 0.0-0.5 BASOPHIL # (test code = BA#) K/mm3 0.0-0.2 [id number] 01:30:00* Test Item Value Reference Range Comments TROPONIN-I (test code = TROPI) <0.015 ng/mL 0-0.045 URINALYSIS [id number] 01:05:00* Test Item Value Reference Range Comments UA COLOR (test code = COLU) YELLOW YELLOW UA APPEARANCE (test code = APPU) CLEAR CLEAR UA GLUCOSE DIPSTICK (test code = DGLUU) 1000 (3+) mg/dL NEGATIVE UA BILIRUBIN DIPSTICK (test code = BILU) NEGATIVE mg/dL NEGATIV E UA KETONE DIPSTICK (test code = KETU) TRACE mg/dL NEGATIVE UA SPECIFIC GRAVITY (test code = SGU) >1.050 1.001-1.03 5 UA BLOOD DIPSTICK (test code = SOPHIE) Negative mg/dL NEGATIVE UA PH DIPSTICK (test code = ERVIN) 5.5 5.0-8.0 UA PROTEIN DIPSTICK (test code = PROU) 10 (Trace) mg/dL NEGATIVE UA UROBILINIOGEN DIPSTICK (test code = URO) Normal mg/dL NEGA TIVE UA NITRITE DIPSTICK (test code = MERVIN) NEGATIVE NEGATIVE UA LEUKOCYTE ESTERASE W REFLEX (test code = LEUUR) NEGATIVE Inge/ uL NEGATIVE UA WBC (test code = WBCU) 0-5 per HPF 0-5 UA RBC (test code = RBCU) 0-2 #/HPF 0-5 UA EPITHELIAL CELLS (test code = EPIU) None seen per HPF FEW UA BACTERIA (test code = BACU) NONE SEEN #/HPF NONE UA MUCUS (test code = MUCU) FEW #/LPF FEW Urine Source? Clean [id number] 20:45:00* Test Item Value Reference Range Comments TROPONIN-I (test code = TROPI) 0.015 ng/mL 0-0.045 - CTA CHEST FOR [id number] 17:45:00 Name: FLORENCE MENDIETA [facility] : 1945 Age/S: 74 / F [address] Unit #: [id number] Loc: [place] [address] Phys: Yeison Rojo MD Acct: [id number] Dis Date: Status: ADM IN PHONE #: [phone] Exam Date: 01/11/2020 1725 FAX #: [phone] Reason: sob EXAMS: CPT CODE: [id number] [place] [id number] REASON FOR EXAM: sob EXAM ORDER DATE: 01/11/2020 1:07 PM Ordering M.D.: Yeison Rojo MD PROCEDURE: - CTA CHEST FOR PE Comparison:Chest x-ray earlier today at 8:[address] images of the chest were obtained with IV contrast. Reconstructed sagittal and coronal images of the chest were provided for interpretation. Dose reduction techniques were applied. FINDINGS: Visualized neck: Normal Airways, Lungs and Pleura: There is mild subsegmental atelectasis in the right lung base. Otherwise normal Heart, great vessels, pulmonary vessels, mediastinum: No pulmonary embolus to the level of the segmental arteries. There is suboptimal opacification of the subsegmental pulmonary arteries in the lower lobes. However there is no enlargement of the pulmonary trunk or enlargement of the right ventricle to suggest hemodynamically significant emboli in the subsegmental arteries. Thoracic aorta demonstrates mild atherosclerotic disease but is normal in caliber. Mild coronary atherosclerosis is also present. Lymph nodes: No axillary, internal mammary, hilar, or mediastinal adenopathy. Musculoskeletal/chest wall: There are degenerative changes at multiple levels of the spine Visualized upper abdomen: Small hiatal hernia is present. Otherwise grossly normal IMPRESSION: No pulmonary embolus to the level of the segmental arteries. Although evaluation of the subsegmental arteries is limited, there is no PAGE 1 Signed Report (CONTINUED) Name: FLORENCE MENDIETA [facility] : 1945 Age/S: 74 / F [address] Unit #: [id number] Loc: [place], [place] [address] Phys: Monica Rojo MD Acct: [id number] Dis Date: Status: ADM IN PHONE #: [phone] Exam Date: 01/11/2020 1725 FAX #: Reason: sob EXAMS: CPT CODE: [id number] [place] [id number] <Continued> evidence of elevated pulmonary arterial pressures or evidence of right heart strain to suggest hemodynamically significant subsegmental emboli. Mild coronary and aortic atherosclerosis. Mild subsegmental atelectasis in the right lung base. Lungs are otherwise clear Location: RR at 1745 Reported and signed by: Stefan Tubbs MD CC: Yeison Rojo MD Technologist:Carol Ann Evans RT(R)(CT); . CTDI: DLP: Trnscb Date/Time: 01/11/2020 (1744) [email or web address] Orig Print D/T: S: 01/11/2020 (2) PAGE 2 Signed Report [id number] 17:07:00* Test Item Value Reference Range Comments TROPONIN-I (test code = TROPI) 0.017 ng/mL 0-0.045 COMMENTS TO COMMUNITY OUTREACH SPECIALIST: COLLECT 3 HOURS AFTER PREVIOUS [id number] 14:29:00* Test Item Value Reference Range Comments TROPONIN-I (test code = TROPI) <0.015 ng/mL 0-0.045 COMMENTS TO COMMUNITY OUTREACH SPECIALIST: COLLECT 3 HOURS AFTER PREVIOUS SAMPLETHYROID STIMULATING [id number] 14:29:00* Test Item Value Reference Range Comments THYROID STIMULATING HORMONE (test code = TSH) 3.350 uIU/mL 0. 36-3.74 TSH REFERENCE RANGES: EUTHYROID: 0.35 - 4.3 mIU/mL HYPO : > 5.5 mIU/mL HYPER : < 0.35 mIU/mL [id number] 14:29:00* Test Item Value Reference Range Comments GLYCOSYLATED HEMOGLOBIN (HA1C) (test code = GLYHGB) 7.4 % HbA1 SUGGESTED DIAGNOSIS: HbA1C (%) Diabetic >6.4Prediabetes 5.7 - 6.4Normal <5.7 ESTIMATED AVERAGE GLUCOSE (test code = EAG) 166 MG/DL B-TYPE NATRIURETIC [id number] 09:20:00* Test Item Value Reference Range Comments B-TYPE NATRIURETIC PEPTIDE (test code = BNP) 19.01 pgram/mL 0-1 00 BASIC METABOLIC [id number] 08:52:00* Test Item Value Reference Range Comments SODIUM (test code = NA) 138 mmol/L 136-145 POTASSIUM (test code = K) 3.6 mmol/L 3.5-5.1 CHLORIDE (test code = CL) 106.0 mmol/L 98-107 CARBON DIOXIDE (test code = CO2) 25.0 mmol/L 21-32 ANION GAP (test code = GAP) 10.6 10-20 GLUCOSE (test code = GLU) 179 mg/dL 74-106 BLOOD UREA NITROGEN (test code = BUN) 16 mg/dL 7-18 GLOMERULAR FILTRATION RATE (test code = GFR) > 60 mL/min >=6 0 Estimated GFR by using Modified MDRD formula.Chronic kidney disease is defined as either kidney damageor GFR <60 mL/min/1.73 m2 for >3 months. CREATININE (test code = CREAT) 0.80 mg/dL 0.55-1.02 * *Note change in reference range due to change in reagent. BUN/CREATININE RATIO (test code = BUN/CREA) 20.0 10-2 0 CALCIUM (test code = CA) 8.5 mg/dL 8.5-10.1 HEPATIC FUNCTION [id number] 08:52:00* Test Item Value Reference Range Comments TOTAL PROTEIN (test code = PROT) 7.8 gram/dL 6.4-8.2 ALBUMIN (test code = ALB) 3.2 g/dL 3.4-5.0 GLOBULIN (test code = GLOB) 4.6 gram/dL 2.7-4.2 ALBUMIN/GLOBULIN RATIO (test code = A/G) 0.7 0.75-1. 50 BILIRUBIN TOTAL (test code = BILT) 0.50 mg/dL 0.0-1.0 BILIRUBIN DIRECT (test code = BILD) 0.15 mg/dL 0.0-0.20 SGOT/AST (test code = AST) 114 IUnit/L 15-37 SGPT/ALT (test code = ALT) 137 IUnit/L 12-78 ALKALINE PHOSPHATASE TOTAL (test code = ALKP) 111 IUnit/L 45 -117 Note change in reference range due to change in reagent. [id number] 08:52:00* Test Item Value Reference Range Comments LIPASE (test code = LIP) 194 U/L 73.0-393.0 [id number] 08:52:00* Test Item Value Reference Range Comments MAGNESIUM (test code = MAG) 1.9 mg/dL 1.8-2.4 TSH REFLEX TO [id number] 08:52:00* Test Item Value Reference Range Comments TSH REFLEX TO FT4 (test code = TSHREFLEX) 3.9 0.4-5. 5 [id number] 08:52:00* Test Item Value Reference Range Comments TROPONIN-I (test code = TROPI) <0.015 ng/mL 0-0.045 - XR CHEST 1 [id number] 08:36:00 FAX: Loy Canales MD [place]: [address] St: REG Name: FLORENCE BURGER [facility] : [birth year] Age/S: 74/F [address] [facility] Unit #: [id number] Loc: [place] [address] Phys: Loy Canales MD Acct: [id number] Dis Date: Status: REG ER PHONE #: [phone] Exam Date: 01/11/2020819 FAX #: [phone] Reason: Shortness of Breath EXAMS: CPT CODE: [id number] XR CHEST 1 V 45482 HISTORY: Shortness of Breath TECHNIQUE: AP chest x-ray COMPARISON: 07/02/13 FINDINGS: No airspace consolidation or pleural effusion. Normal heart size. Atherosclerotic vascular calcification of the thoracic aorta. Degenerative changes of the spine and shoulders. IMPRESSI ON: No radiographic evidence of acute cardiopulmonary process. LOCATION: [facility] Elect ronically Signed by Estephanie Woodward D.O. on 01/11/2020 at 0836 Reported and signed by: Estephanie Woodward D.O. CC: Loy Canales MD Technologist: RASHI DONOVAN RT(R) Trnscrd Date/Time/By: 01/11/2020 (0836) : By: [email or web address] Orig Print D/T: S: 01/11/2020 (0139) PAGE 1 Signed Report BASIC METABOLIC [id number] 08:34:00* Test Item Value Reference Range Comments SODIUM (test code = NA) 138 mmol/L 136-145 POTASSIUM (test code = K) 3.6 mmol/L 3.5-5.1 CHLORIDE (test code = CL) 106.0 mmol/L 98-107 CARBON DIOXIDE (test code = CO2) mmol/L 21-32 ANION GAP (test code = GAP) 10-20 GLUCOSE (test code = GLU) mg/dL 74-106 BLOOD UREA NITROGEN (test code = BUN) mg/dL 7-18 GLOMERULAR FILTRATION RATE (test code = GFR) mL/min >=6 0 CREATININE (test code = CREAT) mg/dL 0.55-1.02 BUN/CREATININE RATIO (test code = BUN/CREA) 10-2 0 CALCIUM (test code = CA) mg/dL 8.5-10.1 HEPATIC FUNCTION [id number] 08:34:00* Test Item Value Reference Range Comments TOTAL PROTEIN (test code = PROT) gram/dL 6.4-8.2 ALBUMIN (test code = ALB) g/dL 3.4-5.0 GLOBULIN (test code = GLOB) gram/dL 2.7-4.2 ALBUMIN/GLOBULIN RATIO (test code = A/G) 0.75-1. 50 BILIRUBIN TOTAL (test code = BILT) mg/dL 0.0-1.0 BILIRUBIN DIRECT (test code = BILD) mg/dL 0.0-0.20 SGOT/AST (test code = AST) IUnit/L 15-37 SGPT/ALT (test code = ALT) IUnit/L 12-78 ALKALINE PHOSPHATASE TOTAL (test code = ALKP) IUnit/L 45 -117 [id number] 08:34:00* Test Item Value Reference Range Comments LIPASE (test code = LIP) U/L 73.0-393.0 [id number] 08:34:00* Test Item Value Reference Range Comments MAGNESIUM (test code = MAG) mg/dL 1.8-2.4 TSH REFLEX TO [id number] 08:34:00* Test Item Value Reference Range Comments TSH REFLEX TO FT4 (test code = TSHREFLEX) 0.4-5. 5 [id number] 08:34:00* Test Item Value Reference Range Comments TROPONIN-I (test code = TROPI) ng/mL 0-0.045 CBC W/O [id number] 08:28:00* Test Item Value Reference Range Comments WHITE BLOOD CELL (test code = WBC) 4.8 K/mm3 4.5-12.5 RED BLOOD CELL (test code = RBC) 4.61 mill/mm3 3.7-5.2 HEMOGLOBIN (test code = HGB) 13.1 gram/dL 11.5-15.5 HEMATOCRIT (test code = HCT) 40.2 % 36.0-46.0 MEAN CELL VOLUME (test code = MCV) 87.2 fL 80-98 MEAN CELL HGB (test code = MCH) 28.4 picogram 27.0-33.0 MEAN CELL HGB CONCETRATION (test code = MCHC) 32.6 gram/dL 33 .0-36.0 RED CELL DISTRIBUTION WIDTH (test code = RDW) 13.2 % 11 .6-16.2 PLATELET COUNT (test code = PLT) 228 K/mm3 150-450 MEAN PLATELET VOLUME (test code = MPV) 9.8 fL 6.7-11.0
[2020-02-03 13:12] LABS: BASOPHILS # (AUTO) 0.1 (0.0-0.1); EOSINOPHILS # (AUTO) 0.2 (0.0-0.4); EOSINOPHILS % 3.2 % (0.0-6.0); HEMATOCRIT 41.1 % (34.2-44.1); LYMPHOCYTES # (AUTO) 1.6 (1.0-3.2); LYMPHOCYTES % 25.6 % (18.0-39.1); MEAN CORPUSCULAR HEMOGLOBIN 28.6 pg (28-32); MEAN CORPUSCULAR HGB CONC 31.6 g/dL (31-35); MEAN CORPUSCULAR VOLUME 90.5 fL (81-99); MONOCYTES # (AUTO) 0.6 (0.2-0.8); MONOCYTES % 9.2 % (4.4-11.3); NEUTROPHILS # (AUTO) 3.8 (2.1-6.9); NEUTROPHILS % 60.7 % (38.7-80.0); PLATELET COUNT 282 x10e3/uL (140-360); RED BLOOD COUNT 4.54 x10e6/uL (3.6-5.1); RED CELL DISTRIBUTION WIDTH 14.6 % (11.7-14.4)
[2020-02-03 13:25] LABS: INR 1.24; PROTHROMBIN TIME 16.4 seconds (11.9-14.5)
[2020-02-03 13:35] LABS: ALANINE AMINOTRANSFERASE 83 IU/L (0-55); ALBUMIN 3.5 g/dL (3.5-5.0); ALBUMIN/GLOBULIN RATIO 0.8 (0.8-2.0); ALKALINE PHOSPHATASE 79 IU/L (40-150); ANION GAP 13.7 mmol/L (8-16); BLOOD UREA NITROGEN 19 mg/dL (7-26); BUN/CREATININE RATIO 22 (6-25); CALCIUM 9.2 mg/dL (8.4-10.2); CARBON DIOXIDE 25 mmol/L (22-29); CHLORIDE 105 mmol/L (98-107); CREATINE KINASE 89 IU/L (29-168); CREATININE, SERUM 0.85 mg/dL (0.57-1.11); EST GLOMERULAR FILTRATION RATE > 60 ML/MIN (60-); GLUCOSE 157 mg/dL (74-118); POTASSIUM 3.7 mmol/L (3.5-5.1); SODIUM 140 mmol/L (136-145)
[2020-02-03] MEDS: PIPER-TAZ 3.375 GM 50 ML IV SCH ×3 (13:49→23:33)
[2020-02-03] MEDS ORDERED: MORPHINE SULFATE 2 MG/ML SYR 1ML IV PRN (14:00)
[2020-02-03] MEDS ORDERED: ONDANSETRON HCL INJ 2MG/ML 2ML 2 MG/ML VIAL IV PRN (14:00)
[2020-02-03] MEDS ORDERED: MORPHINE SULFATE INJ 4 MG/ML INJ 1ML IV PRN (14:15)
[2020-02-03] MEDS ORDERED: IOPAMIDOL 370 MG/ML 200 ML INFUS..BTL INJ ONE ×2 (15:15→15:16)
[2020-02-03] MEDS ORDERED: SODIUM CHLORIDE 0.9% 50ML 50 ML ONE (15:15)
--- NOTE | 2020-02-03 15:28 | Diagnostic Imaging Report ---
CT of the chest, PE protocol, with contrast. History: Shortness of breath, history of pulmonary is some.. Comparison: None available. Technique: Multidetector thin collimation CT scanning of the chest was performed from the level of the apices to the upper abdomen during the pulmonary arterial phase, after intravenous administration of contrast. Coronal and sagittal MIP reformations were obtained. RADIATION DOSE: Total DLP: 506.71 mGy*cm Dose modulation, iterative reconstruction, and/or weight based adjustment of the mA/kV was utilized to reduce the radiation dose to as low as reasonably achievable. FINDINGS: The main pulmonary artery is prominent measuring 3.5 cm in maximal diameter. Acute appearing filling defect/thrombus is identified beginning within the distal main left pulmonary artery with extension into the left upper and lower lobar/segmental pulmonary arteries. Additionally, filling defects are identified within the right upper, middle, and lower lobar pulmonary arteries with extension into the segmental arteries. There is prominence of the right ventricle and flattening of the interventricular septum concerning for right-sided heart strain. The thyroid and remaining visualized structures within the base of the neck demonstrate no significant abnormalities. The thoracic aorta is normal course and caliber with atherosclerotic calcifications. The heart is not enlarged. No abnormal pericardial fluid is present. There is no abnormal axillary, mediastinal, or hilar lymph node enlargement. The trachea and proximal airways are patent. There is a 1.9 x 1.5 cm wedge-shaped opacity identified within the peripheral left lower lobe which likely reflects a pulmonary infarct. Areas of subsegmental atelectasis noted bilaterally. There is no evidence for consolidation, pneumothorax, mass/suspicious nodule, or pleural effusion. Limited views of the upper abdomen demonstrate diffusely decreased attenuation of the liver suggestive of fatty infiltration. Small hiatal hernia noted. The osseous structures demonstrate no evidence for acute fracture or destructive process. The extrathoracic soft tissues are unremarkable. IMPRESSION: 1. Extensive, acute appearing bilateral pulmonary thromboemboli with CT findings suggestive of right-sided heart strain as detailed above. 2. Small wedge-shaped opacity noted within the peripheral left lower lobe likely reflecting a small pulmonary infarct. 3. CT findings suggestive of hepatic steatosis. Findings were discussed with Dr. Cleveland at 3:15 PM on 02/03/2020. Signed by: Dr. Sai Kirkpatrick MD on 02/03/2020 3:24 PM
[2020-02-03] MEDS ORDERED: GUAIFENESIN/CODEINE 10 ML CUP PO PRN (16:15)
[2020-02-03] MEDS ORDERED: ZOLPIDEM TARTRATE 5 MG TAB PO PRN (16:15)
[2020-02-03] MEDS: FLUTICASONE PROPIONATE NASAL SPRAY NS SCH (17:00)
[2020-02-03] MEDS: ENOXAPARIN SODIUM INJ 100 MG/ML SYR SC SCH (17:13)
[2020-02-03] MEDS: PANTOPRAZOLE 40 MG 10ML VIAL IV SCH (17:13)
--- NOTE | 2020-02-03 18:11 | NUR ---
H&P cc: sob HPI: 74yoF, PCP , developed sob for 6 weeks, with associated leg pain, found to have acute right leg DVT and B/L PE at [facility]. No travel for past 2 months; found to have PE and DVT- both acute. PMH: GERD, iron-deficiency anemia, constipation, depression, B/L pulmonary embolism 01/2020, Acute right leg DVT 01/2020, cholelithiasis, liver steatosis, peripheral neuropathy, obesity, pSHx: hysterectomy ALlergies: see emr FH/SH; no illicits meds; see [facility] ROS: no f/c/s/N/V/D/PARIKH/cp/skin rash/backpain/vision changes/focal limb weakness v/s; revd PE tired appearing anicteric ns1s2 reduced BS soft nt nd trace leg edema skin dry flat affect labs/med revd A/P: B/L pulmonary embolism- large clot burden; evaluation for catheter-directed thrombolysis RIght leg DVT- pt states that she was taking eliquis as directed RIght heart strain- check echo Obesity- caloric restrictionneeded BMI 32.7- check hab1c/Lipids Depression -supportive care; Hypeglycemia- screen for DM Prop: AC; Dispo: transfer to [facility] for catheter-directed thrombolysis Te Price MD, PhD.
--- NOTE | 2020-02-03 22:37 | Consultation ---
DATE OF CONSULTATION: Pulmonary Critical Care Consultation CHIEF COMPLAINT: Dyspnea and history of pulmonary thromboembolic disease. HISTORY OF PRESENT ILLNESS: The patient is a 74-year-old woman. She has a history of recent hospitalization at [facility] with bilateral pulmonary emboli. She was treated with intravenous heparin followed by Eliquis. She was subsequently discharged home on Eliquis. She has been at home on Eliquis for 3 days, but has noticed no improvement. In fact, she feels more dyspneic when she walks. She complains of fatigue. The patient also complains of cough. She has some acid reflux. She also notes some postprandial discomfort and has had a history of gallstones in the past. PAST SURGICAL HISTORY: Noncontributory. PAST MEDICAL HISTORY: 1. Pulmonary emboli and deep vein thrombosis. 2. Cholelithiasis. 3. Gastroesophageal reflux. SOCIAL HISTORY: The patient is not a smoker. The patient is not a drinker. She has good family support. Sister and daughter have come to visit her at the hospital previously. ALLERGIES: NO KNOWN DRUG ALLERGIES. REVIEW OF SYSTEMS: There is no history of fevers. There is no history of headache. She does have some cough. She is not having chest pain. She has dyspnea. She has no abdominal pain. She has some acid reflux and some postprandial discomfort. She does not complain of any abdominal pain. She has some leg edema and has had a DVT recently on the right leg. PHYSICAL EXAMINATION: VITAL SIGNS: The patient is afebrile. The blood pressure is 133/78, the saturation is 95%, and the pulse is 95. HEENT: Shows no facial swelling or erythema. CARDIAC: Reveals a regular rate and rhythm with a normal S1 and S2. LUNGS: Auscultation of lungs reveals clear breath sounds bilaterally. There is no wheezing. ABDOMEN: Soft and nontender. There is no rebound or guarding. EXTREMITIES: Shows 2 to 3+ leg edema bilaterally. NEUROLOGICAL: Shows no focal abnormalities. LABORATORY DATA: BNP is 616. Other electrolytes are within normal limits. The BUN to creatinine ratio is normal. AST is 107 and the ALT is 83. Albumin is 3.5. RADIOGRAPHIC DATA: Chest CT scan shows extensive acute appearing bilateral pulmonary thromboemboli. There is possible right heart strain on the CT scan. There is also a small wedge-shaped opacity in the left lower lobe which may reflect a pulmonary infarct. The patient also has hepatic steatosis. IMPRESSION: 1. Pulmonary emboli with right heart strain. 2. Cholelithiasis. 3. Gastroesophageal reflux. PLAN: 1. The patient has been started on Lovenox at 1 mg/kg twice daily. 2. Stat echocardiogram is pending to assess right ventricular function. 3. The patient may require transfer to a facility with capability for EKOS. Direct lysis. 4. Treatment for gastroesophageal reflux. 5. Case was discussed with nursing, ER, Cardiology, Internal Medicine, and patient. Cristhian Tesfaye MD [facility] /[id number]
[2020-02-04] VITALS (14 sets, daily range): BP systolic 99–122; BP diastolic 56–82
[2020-02-04] MEDS: ENOXAPARIN SODIUM INJ 100 MG/ML SYR SC SCH (05:13)
[2020-02-04] MEDS: PIPER-TAZ 3.375 GM 50 ML IV SCH ×2 (05:13→11:36)
[2020-02-04 05:39] LABS: EOSINOPHILS # (AUTO) 0.3 (0.0-0.4); EOSINOPHILS % 6.5 % (0.0-6.0); HEMATOCRIT 37.1 % (34.2-44.1); HEMOGLOBIN 11.6 g/dL (12.0-16.0); LYMPHOCYTES # (AUTO) 1.1 (1.0-3.2); LYMPHOCYTES % 26.7 % (18.0-39.1); MEAN CORPUSCULAR HEMOGLOBIN 28.6 pg (28-32); MEAN CORPUSCULAR HGB CONC 31.3 g/dL (31-35); MEAN CORPUSCULAR VOLUME 91.4 fL (81-99); MONOCYTES # (AUTO) 0.4 (0.2-0.8); MONOCYTES % 10.1 % (4.4-11.3); NEUTROPHILS # (AUTO) 2.2 (2.1-6.9); NEUTROPHILS % 55.2 % (38.7-80.0); PLATELET COUNT 254 x10e3/uL (140-360); RED BLOOD COUNT 4.06 x10e6/uL (3.6-5.1); RED CELL DISTRIBUTION WIDTH 14.6 % (11.7-14.4)
--- NOTE | 2020-02-04 05:49 | NUR ---
IM- progress note O/N see below ROS: no f/c/s/N/V/D/PARIKH/cp/skin rash/backpain/vision changes/focal limb weakness v/s; revd PE tired appearing anicteric ns1s2 reduced BS soft nt nd trace leg edema skin dry flat affect labs/med revd A/P: B/L pulmonary embolism- large clot burden; evaluation for catheter-directed thrombolysis RIght leg DVT- pt states that she was taking eliquis as directed RIght heart strain- check echo Acute resp failure- O2 support; Acute cough- prn tessalon Obesity- caloric restrictionneeded BMI 32.7- check hab1c/Lipids Depression -supportive care; Hypeglycemia- screen for DM Prop: AC; Dispo: transfer to [facility] for catheter-directed thrombolysis 5-6 Acute Resp failure- cont O2 support; cont care; await transfer; Te Price MD, PhD.
[2020-02-04 06:12] LABS: CREATINE KINASE MB 9.1 ng/mL (0-5.0)
[2020-02-04 06:35] LABS: CHOL/HDL RATIO 5.1 (3.0-3.6)
[2020-02-04 06:49] LABS: ALANINE AMINOTRANSFERASE 71 IU/L (0-55); ALBUMIN/GLOBULIN RATIO 0.8 (0.8-2.0); ALKALINE PHOSPHATASE 64 IU/L (40-150); ANION GAP 14.8 mmol/L (8-16); BLOOD UREA NITROGEN 17 mg/dL (7-26); BUN/CREATININE RATIO 20 (6-25); CALCIUM 8.9 mg/dL (8.4-10.2); CARBON DIOXIDE 25 mmol/L (22-29); CHLORIDE 106 mmol/L (98-107); CREATININE, SERUM 0.83 mg/dL (0.57-1.11); EST GLOMERULAR FILTRATION RATE > 60 ML/MIN (60-); GLUCOSE 135 mg/dL (74-118); POTASSIUM 3.8 mmol/L (3.5-5.1); SODIUM 142 mmol/L (136-145)
--- NOTE | 2020-02-04 08:43 | NUR ---
Spoke with Amanda, assembly room supervisor. Transfer was initiated last night and we are currently pending COVID results. Amanda states she will follow up on transfer request.
[2020-02-04] MEDS ORDERED: BENZONATATE 100 MG CAP PO SCH (09:00)
[2020-02-04] MEDS: FLUTICASONE PROPIONATE NASAL SPRAY NS SCH (09:41)
[2020-02-04] MEDS: PANTOPRAZOLE 40 MG 10ML VIAL IV SCH (09:41)
--- NOTE | 2020-02-04 10:44 | Progress Note ---
DATE: SUBJECTIVE: The patient still reports some cough. She becomes short of breath when she walks. She has no fever. PHYSICAL EXAMINATION: VITAL SIGNS: The patient is afebrile. The blood pressure is 101/66. Saturation is 95% on 5 L. HEENT: Shows no facial swelling or erythema. CARDIAC: Reveals regular rate and rhythm with normal S1, S2. LUNGS: Auscultation of lungs shows clear breath sounds bilaterally. There is no wheezing. ABDOMEN: Soft, nontender. There is no rebound or guarding. EXTREMITIES: Show no leg edema or calf tenderness. There is no cyanosis or clubbing. SKIN: Shows no rashes. LABORATORY DATA: White blood cell count is 3.97 and hemoglobin is 11.6. The platelet count is 254. The BUN to creatinine ratio is 17 to 0.83. First coronavirus serology is negative. IMPRESSION: 1. Extensive pulmonary emboli with acute cor pulmonale. 2. Gastroesophageal reflux. 3. Cholelithiasis. PLAN: 1. Await transfer to [facility] [place] for catheter directed thrombolysis. 2. Continue Lovenox. 3. Cough suppressant p.r.n. 4. Continue to treat gastroesophageal reflux. 5. Case discussed with nursing staff, the patient, Dr. Price, and administration. Cristhian Tesfaye MD [facility] /[id number]
[2020-02-04] MEDS ORDERED: PAROXETINE HCL 20 MG TAB PO SCH (11:45)
[2020-02-04] MEDS ORDERED: LORAZEPAM 0.5 MG TAB PO PRN (11:45)
--- NOTE | 2020-02-04 13:07 | NUR ---
nursing report given to Pinky CASANOVA at [facility]. [phone]
--- NOTE | 2020-02-04 14:05 | NUR ---
patient left with ambulance. on nc. pt alert and orient. vss. left with belongings. confirmed o2 tank and shirt in ER, pt with EMT's to picker/puller belongings on way to ambulance.
--- NOTE | 2020-02-04 14:10 | Consultation ---
DATE OF CONSULTATION: Cardiology Consultation REASON FOR CONSULTATION: Pulmonary embolism. HISTORY OF PRESENT ILLNESS: This is a 74-year-old woman with a history of pulmonary embolism that was diagnosed last week at [facility] along with deep venous thrombosis, who presented back to our facility for severe shortness of breath. She was taking Eliquis for approximately 3 days, but her symptoms have progressively worsened and she was only able to take a few steps without being severely short of breath and also reports significant fatigue. Here, her CT scan showed bilateral pulmonary emboli. Her echocardiogram showed severe enlargement of a right ventricle with severe systolic dysfunction and septal flattening in diastole. She is currently on oxygen, however, she is hemodynamically stable. REVIEW OF SYSTEMS: A 12-point review of system was conducted and is negative except as stated above in the HPI. PAST MEDICAL HISTORY: Pulmonary embolism, deep venous thrombosis, cholelithiasis, and gastroesophageal reflux disease. PAST SURGICAL HISTORY: None recent. PAST FAMILY HISTORY: She states that her brother and sister potentially have blood clots in their lungs as well. SOCIAL HISTORY: No illicit drugs, alcohol, or tobacco use. ALLERGIES: NO KNOWN DRUG ALLERGIES. MEDICATIONS: See medication reconciliation form. PHYSICAL EXAMINATION: VITAL SIGNS: Her temperature is 98.4, heart rate is 90, respirations are 20, blood pressure is 112/71, and oxygen saturation is 95% on 5 L nasal cannula. GENERAL: She is a well-appearing, well-built, woman, who is in no apparent distress. She is alert and oriented x3. HEAD: Normocephalic and atraumatic. EYES: The extraocular muscles are intact. Conjunctivae are clear. NECK: No JVD. No bruits. CARDIOVASCULAR: She has regular rate and rhythm. Systolic murmur at the left sternal border. Normal S1 and S2. LUNGS: Diminished breath sounds at bases. ABDOMEN: Soft, obese, nontender, and nondistended. EXTREMITIES: There is right lower extremity swelling. SKIN: Warm, dry, and intact. NEUROLOGIC: Cranial nerves are intact. No focal deficits. PSYCHIATRIC: Normal mood and affect. LABORATORY VALUES: Reviewed. Hemoglobin is 11.6 and platelets are 254. Her creatinine is 0.83. AST and ALT are elevated at 83 and 71 respectively. Her CK-MB is 9.1. Her troponin is 0.078. BNP is 616. Hemoglobin A1c is 7.9. CT of the chest shows extensive acute appearing bilateral pulmonary thromboemboli with CT findings suggestive of: 1. Right-sided strain. 2. Small wedge-shaped opacity within the peripheral left lower lobe, likely reflecting a small pulmonary infarct. 3. Hepatic steatosis. Echocardiogram showed preserved left ventricular systolic function with severe enlargement of the right ventricle with severe reduction in right ventricular systolic function with septal flattening in diastole, dilated IVC, mild pulmonary hypertension. IMPRESSION: 1. Submassive pulmonary embolism number. 2. Acute respiratory failure with hypoxia. 3. Liver injury consistent with hepatic steatosis. 4. Diabetes mellitus. 5. Obesity. RECOMMENDATIONS: The patient will need to be transferred to a facility that can provide catheter-directed thrombolysis. We have initiated the transfer. Continue anticoagulation in the meantime. Elevated liver enzymes and diabetes mellitus control per primary team. DO MEGA Valdovinos/PROSPER /[id number]
--- NOTE | 2020-02-04 20:16 | NUR ---
D/C Summary Principal Dx: B/L pulmonary embolism- large clot burden; evaluation for catheter-directed thrombolysis RIght leg DVT- pt states that she was taking eliquis as directed RIght heart strain- check echo Acute resp failure- O2 support; Acute cough- prn tessalon Obesity- caloric restrictionneeded BMI 32.7- check hab1c/Lipids Newly dx DM- hab1c 7.9, LDL 92 Secondary Dx: Depression -supportive care; Hypeglycemia- screen for DM Prop: AC; Dispo: transfer to [facility] for catheter-directed thrombolysis 5-6 Acute Resp failure- cont O2 support; cont care; await transfer; d/c to [facility] stable f/u medical team at [facility] d/c>35mins Te Price MD, PhD.
== END 2020-02-04 14:08 | disposition short-term general hospital (02) | DRG 175 ==
LOC: ER 12:40 → ERHOLD 14:00 → ICU 15:57
PROVIDERS: ADMIT Internal Medicine; ATTEND Internal Medicine
DX: I26.09 Other pulmonary embolism with acute cor pulmonale (principal); J96.01 Acute respiratory failure with hypoxia; I82.411 Acute embolism and thrombosis of right femoral vein; Z79.01 Long term (current) use of anticoagulants; E66.9 Obesity, unspecified; Z68.32 Body mass index [BMI] 32.0-32.9, adult; F32.9 Major depressive disorder, single episode, unspecified; K21.9 Gastro-esophageal reflux disease without esophagitis; G62.9 Polyneuropathy, unspecified; I51.9 Heart disease, unspecified; K80.20 Calculus of gallbladder without cholecystitis without obstruction; K76.0 Fatty (change of) liver, not elsewhere classified; E11.65 Type 2 diabetes mellitus with hyperglycemia; Z03.818 Encounter for observation for suspected exposure to other biological agents ruled out
CPT/HCPCS: 36415; 71260; 80053; 80061; 82550; 82553; 83036; 83605; 83880; 84484; 85025; 85610; 87040; 87635; 93005; 93306; 93970; 96360; 99284; J1650; J2543; Q9967